=== PATIENT | female | born 1975 | race Caucasian/White ===

== ENCOUNTER 2019-09-20 09:08 | Emergency (ER) | payer OTHER ==
--- NOTE | 2019-09-20 09:26 | EDM.PDOC ---
ED HPI GENERAL MEDICAL PROBLEM - General Chief Complaint: General Stated Complaint: foot cellulitis Left Time Seen by Provider: 09/20/19 09:15 Source of Information: Reports: Patient, Old Records ([facility] chart/EMR) History Limitations: Reports: No Limitations - History of Present Illness INITIAL COMMENTS - FREE TEXT/NARRATIVE: The patient was brought to the emergency room via private automobile by her for one day history of increasing 2/10 left anterior leg pain associated with some progressive erythema. No history of recent injury, etc. with the patient having a known history of recurrent cellulitis in this leg. The patient also denies any recent cough, wheezing, dyspnea, etc., although possible fever yesterday, however she did not measure her temperature. She did take 650 mg of Tylenol at 21:00 hours this past evening. No recent history of abdominal pain, heartburn, nausea, diarrhea, melena, gross hematochezia, or any food intolerance, including fatty foods, etc.. She denies any gross hematuria, colic, or other UTI symptoms. The patient also denies any recent fever, cough, wheezing, dyspnea, etc.. Onset: Gradual Onset Date: 09/19/19 Onset Time: 12:00 Duration: Constant, Getting Worse Location: Reports: Lower Extremity, Left. Denies: Head, Face, Neck, Chest, Abdomen, Back, Pelvis, Upper Extremity, Left, Upper Extremity, Right, Lower Extremity, Right, Generalized, Radiates to Quality: Reports: Ache, Same as Previous Episode Severity: Mild Improves with: Reports: None Worsens with: Reports: None Context: Reports: Other (As above). Denies: Sick Contact, Trauma Associated Symptoms: Reports: Fever/Chills, Rash. 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 Left Lower Leg Pain Score (Numeric/FACES): 2 - Related Data Allergies Allergy/AdvReac Type Severity Reaction Status Date / Time No Known Allergies Allergy Verified 09/20/19 09:55 Home Meds: Home Meds Desoximetasone [Topicort 0.25% Crm] 1 applic TOP BID PRN 12/29/14 [History] Calcium Carbonate/Vitamin D3 [Calcium 600 + Vit D 200] 2 tab PO BEDTIME [History] levETIRAcetam [Keppra] 1,000 mg PO BID 02/12/16 [History] Ascorbic Acid [Vitamin C] 500 mg PO DAILY 12/02/18 [History] Cholecalciferol (Vitamin D3) [Vitamin D3] 1 tab PO DAILY 12/02/18 [History] Famotidine [Acid Bobbin Winder Tender] 10 mg PO BID 12/02/18 [History] Fluticasone Propionate 1 spray NASBOTH DAILY 12/02/18 [History] Amoxicillin/Potassium Clav [Augmentin 875-125 Tablet] 1 each PO BIDMEALS #14 tablet 09/20/19 [Rx] Potassium Chloride 20 meq PO DAILY 09/20/19 [History] Sertraline [Zoloft] 150 mg PO DAILY 09/20/19 [History] hydroCHLOROthiazide [Hydrochlorothiazide] 25 mg PO DAILY #1 tab 09/20/19 [Rx] Past Medical History HEENT History: Reports: Allergic Rhinitis, Impaired Vision, Other (See Below). Denies: Cataract, Glaucoma, Hard of Hearing, Macular Degeneration, Otitis Media , Retinal Detachment Other HEENT History: Seasonal allergies. The patient does wear glasses. Cardiovascular History: Reports: High Cholesterol, Hypertension, Other (See Below). Denies: Afib, Aneurysm, Arrhythmia, Blood Clots/VTE/DVT, CAD, Cardiomyopathy, Heart Failure, Heart Murmur, UT, PVD, Syncope Other Cardiovascular History: Varicose veins. Dependent edema. Respiratory History: Reports: None. Denies: Asthma, Bronchitis, Recurrent, COPD , Intubation, Difficult, Intubation, Previous, PE, Pneumonia, Recurrent, Pneumothorax, Sleep Apnea, TB Gastrointestinal History: Reports: Cholelithiasis, GERD. Denies: Bowel Obstruction, Celiac Disease, Chronic Constipation, Chronic Diarrhea, Fecal Incontinence, Gastritis, GI Bleed, Hepatitis, Hiatal Hernia, Inflammatory Bowel Disease, Irritable Bowel Syndrome, Jaundice, Pancreatitis, PUD Genitourinary History: Reports: None. Denies: Acute Renal Failure, Chronic Renal Insuffiency, Renal Calculus, Retention, Urinary, STD, Urinary Incontinence , UTI, Recurrent PRINTING PLATE MAKER History: Reports: . Denies: Dysfunctional Uterine Bleeding, Endometriosis, Fibroids, Polycystic Ovaries, Spontaneous : 4 Para: 4 LMP (Approximate): Other (See Below) Other PRINTING PLATE MAKER History: LMP one week ago, which was normal. Full term without complications during pregnancies or deliveries. Musculoskeletal History: Reports: Arthritis, Fracture, Osteoarthritis, Other ( See Below). Denies: Amputation, Back Pain, Chronic, Gout, Neck Pain, Chronic, RA, SLE Other Musculoskeletal History: Comminuted and dislocated left ankle fracture on 02/12/16 with surgey as below. Neurological History: Reports: Seizure, Other (See Below). 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 Psychiatric History: Reports: Anxiety, Depression. Denies: Abuse, Victim of, ADD, ADHD, Addiction, Psych Hospitalization(s), Psychosis, Suicide Attempt, Suicidal Ideation Endocrine/Metabolic History: Reports: Obesity/BMI 30+. Denies: Diabetes, Gestational, Diabetes, Type I, Diabetes, Type II, Diabetes Mellitus, Type 3c, Hypothyroidism, IDDM Hematologic History: Reports: None. Denies: Anemia, Blood Transfusion(s), Iron Deficiency Immunologic History: Reports: None. Denies: AIDS, HIV, SLE Oncologic (Cancer) History: Reports: None. Denies: Basal Cell Carcinoma, Breast , Cervix, Hodgkin's Lymphoma, Leukemia, Lymphoma, Malignant Melanoma, Non- Hodgkin's Lymphoma, Ovarian, Squamous Cell Carcinoma, Uterine Dermatologic History: Reports: Chronic Cellulitis, Venous Stasis Dermatitis, Other (See Below). Denies: Eczema, Psoriasis Other Dermatologic History: Venous stasis dermatitis with recurrent cellulitis of the left leg. - Infectious Disease History Infectious Disease History: Reports: None. Denies: C-Difficile, Chicken Pox, Measles, Meningitis, Mononucleosis, MRSA, Mumps, Pertussis (Whooping Cough), Rubella, Scarlet Fever, Shingles, TB, VRE - Past Surgical History Head Surgeries/Procedures: Reports: Craniotomy, Other (See Below) Other Head Surgeries/Procedures: AVM repair? vs. an unknown type of surgery to correct seizures in 2005. HEENT Surgical History: Reports: Oral Surgery, Other (See Below). Denies: Adenoidectomy, Cataract Surgery, Eye Surgery, Laser Surgery, LASIK, Myringotomy w Tube(s), Naso-Sinus Surgery, Tonsillectomy Other HEENT Surgeries/Procedures: [place] teeth extraction 3 at about age 24. Cardiovascular Surgical History: Reports: None. Denies: Varicose Respiratory Surgical History: Reports: None, Lung Biopsies. Denies: Thoracentesis GI Surgical History: Reports: Cholecystectomy. Denies: Appendectomy, Colonoscopy, EGD, Hernia, Abdominal, Hernia, Inguinal, Hernia Repair/Other Female Surgical History: Reports: Tubal Ligation, Other (See Below). Denies : Breast Biopsy, Section, D&C, Hysterectomy, Oophorectomy, Salpingo- Oophorectomy Other Female Surgeries/Procedures: Bilateral tubal ligation in 2009. Endocrine Surgical History: Reports: None. Denies: Thyroid Biopsy Neurological Surgical History: Reports: None. Denies: C-Spine, Discectomy, Laminectomy, Lumbar Spine, Sacral Spine, Scoliosis, Spinal Fusion, Vertebroplasty Musculoskeletal Surgical History: Reports: ORIF, Other (See Below). Denies: Arthroscopic Procedure, Carpal Tunnel, Ganglion Cyst, Joint Replacement, Shoulder Replacement, Shoulder Surgery Other Musculoskeletal Surgeries/Procedures:: ORIF of left ankle fracture on 02/11. Oncologic Surgical History: Reports: None Dermatological Surgical History: Reports: None - Past Imaging History Past Imaging History: Reports: Mammogram (Last on 10/15/18) Social & Family History - Tobacco Use Smoking Status *Q: Never Smoker Tobacco Use Within Last Twelve Months: No Used Tobacco, but Quit: No Smoking Cessation Information Provided To Patient: No Second Hand Smoke Exposure: No Second Hand Smoke Education Provided: No - Caffeine Use Caffeine Use: Reports: Coffee (2 cups per day), Soda (1 soda per week), Tea ( One cup per day). Denies: Energy Drinks - Alcohol Use Alcohol Use History: Yes Days Per Week of Alcohol Use: 0 Number of Drinks Per Day: 1 Number of Drinks Per Day Comment: Usually kindra in mixed drinks for holidays, etc.. No previous DWIs, problems with alcohol abuse, etc. 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 ED ROS GENERAL - Review of Systems Review Of Systems: Comprehensive ROS is negative, except as noted in HPI. ED EXAM, GENERAL - Physical Exam Exam: See Below Exam Limited By: No Limitations General Appearance: Alert, WD/WN, No Apparent Distress Head: Atraumatic, Normocephalic Neck: Normal Inspection, Supple, Non-Tender, Full Range of Motion. No: Lymphadenopathy (L), Lymphadenopathy (R), Thyromegaly Respiratory/Chest: No Respiratory Distress, Lungs Clear, Normal Breath Sounds, No Accessory Muscle Use, Chest Non-Tender. No: Pleural Rub, Retractions Cardiovascular: Normal Peripheral Pulses, No Edema, No Gallop, No JVD, No Murmur , No Rub, Tachycardia (Regular rhythm). No: Gallop/S3, Gallop/S4, Friction Rub Peripheral Pulses: 2+: Radial (L), Radial (R), Dorsalis Pedis (L), Dorsalis Pedis (R) GI/Abdominal: Normal Bowel Sounds, Soft, Non-Tender, No Organomegaly, No Distention, No Abnormal Bruit, No Mass, Pelvis Stable, Other ( obese). No: Guarding (Female) Exam: Deferred Rectal (Female) Exam: Deferred Back Exam: Normal Inspection, Full Range of Motion. No: CVA Tenderness (L), CVA Tenderness (R), Muscle Spasm Extremities: Pedal Edema (+1 left leg by mouth/pretibial edema), Redness (+2 irregular patch of erythema extending over the dorsal surfaces from the toes to mid anterior tibial region with maximum diameter of 30 cm. No ulcerations, lymphangitis, drainage, etc. etc. Moderate to severe varicosity of the left leg) . No: Anat's Sign Neurological: Alert, Oriented, CN II-XII Intact, Normal Cognition, Normal Gait, Normal Reflexes (Negative Babinski's), No Motor/Sensory Deficits Psychiatric: Normal Affect, Normal Mood Skin Exam: Dry, Intact, Erythema (As above). No: Diaphoretic, Ecchymosis, Increased Warmth, Lymphangitis, Petechiae, Wound/Incision Lymphatic: No Adenopathy Course - Vital Signs Last Recorded V/S: Last Vital Signs Temp 36.4 C 09/20/19 09:20 Pulse 100 09/20/19 10:20 Resp 30 H 09/20/19 10:20 BP 120/74 09/20/19 10:20 Pulse Ox 96 09/20/19 10:20 Vital Signs - 24 hr 09/20/19 09/20/19 09/20/19 09:20 09:35 09:50 Temperature [ 36.4 C Temporal] Pulse, 109 H 108 H 105 H Peripheral [ Pulse Oximetry] Respiratory 22 H 27 H 28 H Rate Blood Pressure 123/81 125/75 125/75 [Left Upper Arm ] O2 Sat by Pulse 97 96 96 Oximetry 09/20/19 09/20/19 10:05 10:20 Temperature [ Temporal] Pulse, 101 H 100 Peripheral [ Pulse Oximetry] Respiratory 29 H 30 H Rate Blood Pressure 118/74 120/74 [Left Upper Arm ] O2 Sat by Pulse 95 96 Oximetry - Orders/Labs/Meds Orders: Active Orders 24 hr Category Date Time Status Cardiac Monitoring [RC] . DIRECTED Care 09/20/19 09:27 Active Peripheral IV Care [RC] . DIRECTED Care 09/20/19 09:27 Active Sodium Chloride 0.9% [Saline Flush] Med 09/20/19 09:26 Active 10 ml FLUSH ASDIRECTED PRN Obtain Past Medical Record [OM.PC] Routine Oth 09/20/19 09:26 Active Peripheral IV Insertion Adult [OM.PC] Routine Oth 09/20/19 09:27 Ordered Medication Orders Sodium Chloride (Saline Flush) 10 ml FLUSH ASDIRECTED PRN PRN Reason: Keep Vein Open Last Admin: 09/20/19 10:38 Dose: 10 ml Admin: 09/20/19 09:58 Dose: 10 ml Labs: Laboratory Tests 09/20/19 09/20/19 09/20/19 Range/Units 09:50 09:50 09:50 WBC 12.6 H (4.0-10.2) K/uL RBC 4.41 (3.77-5.09) M/uL Hgb 13.1 D (11.7-15.5) g/dL Hct 38.2 (34.0-46.0) % MCV 86.6 D (84.0-98.0) fL MCH 29.7 (28.2-33.3) pg MCHC 34.3 (31.7-36.0) g/dL RDW 13.8 (11.2-14.1) % Plt Count 205 (150-350) K/uL Neut % (Auto) 93.0 H (45.0-80.0) % Lymph % (Auto) 4.8 L (10.0-50.0) % Traverse % (Auto) 2.1 (2.0-14.0) % Eos % (Auto) 0.0 (0.0-5.0) % Baso % (Auto) 0.1 (0.0-2.0) % Neut # (Auto) 11.76 H (1.40-7.00) K/uL Lymph # (Auto) 0.61 (0.50-3.50) K/uL Traverse # (Auto) 0.26 (0.00-1.00) K/uL Eos # (Auto) 0.00 (0.00-0.50) K/uL Baso # (Auto) 0.01 (0.00-0.20) K/uL D-Dimer, Quantitative (0-400) ng/mL Sodium 135 L (136-145) mmol/L Potassium 2.8 L* (3.5-5.1) mmol/L Chloride 98 (98-107) mmol/L Carbon Dioxide 23.5 (21.0-32.0) mmol/L BUN 13 (7-18) mg/dL Creatinine 0.79 (0.51-1.17) mg/dL Est Cr Clr Drug Dosing TNP Estimated GFR (MDRD) > 60 mL/min Glucose 159 H (74-106) mg/dL Hemoglobin A1c 5.4 (4.3-5.7) % Lactic Acid (0.4-2.0) mmol/L Uric Acid (2.6-7.2) mg/dL Calcium 8.5 (8.5-10.1) mg/dL Magnesium 1.9 (1.8-2.4) mg/dL Total Bilirubin 0.6 (0.2-1.0) mg/dL AST 22 (15-37) U/L ALT 28 (12-78) U/L Alkaline Phosphatase 65 (46-116) IU/L Total Protein 7.4 (6.4-8.2) g/dL Albumin 3.6 (3.4-5.0) g/dL 09/20/19 09/20/19 09/20/19 Range/Units 09:50 09:50 09:50 WBC (4.0-10.2) K/uL RBC (3.77-5.09) M/uL Hgb (11.7-15.5) g/dL Hct (34.0-46.0) % MCV (84.0-98.0) fL MCH (28.2-33.3) pg MCHC (31.7-36.0) g/dL RDW (11.2-14.1) % Plt Count (150-350) K/uL Neut % (Auto) (45.0-80.0) % Lymph % (Auto) (10.0-50.0) % Traverse % (Auto) (2.0-14.0) % Eos % (Auto) (0.0-5.0) % Baso % (Auto) (0.0-2.0) % Neut # (Auto) (1.40-7.00) K/uL Lymph # (Auto) (0.50-3.50) K/uL Traverse # (Auto) (0.00-1.00) K/uL Eos # (Auto) (0.00-0.50) K/uL Baso # (Auto) (0.00-0.20) K/uL D-Dimer, Quantitative 233 (0-400) ng/mL Sodium (136-145) mmol/L Potassium (3.5-5.1) mmol/L Chloride (98-107) mmol/L Carbon Dioxide (21.0-32.0) mmol/L BUN (7-18) mg/dL Creatinine (0.51-1.17) mg/dL Est Cr Clr Drug Dosing Estimated GFR (MDRD) mL/min Glucose (74-106) mg/dL Hemoglobin A1c (4.3-5.7) % Lactic Acid 1.9 (0.4-2.0) mmol/L Uric Acid 4.7 (2.6-7.2) mg/dL Calcium (8.5-10.1) mg/dL Magnesium (1.8-2.4) mg/dL Total Bilirubin (0.2-1.0) mg/dL AST (15-37) U/L ALT (12-78) U/L Alkaline Phosphatase (46-116) IU/L Total Protein (6.4-8.2) g/dL Albumin (3.4-5.0) g/dL Meds: Medications Generic Name Dose Route Start Last Admin Trade Name Freq PRN Reason Stop Dose Admin Sodium Chloride 10 ml 09/20/19 09:26 09/20/19 10:38 Saline Flush FLUSH 10 ml ASDIRECTED PRN Administration Keep Vein Open Discontinued Medications Generic Name Dose Route Start Last Admin Trade Name Freq PRN Reason Stop Dose Admin Ceftriaxone Sodium 1 gm/ 100 mls @ 200 mls/hr 09/20/19 09:42 09/20/19 09:57 Sodium Chloride IV 09/20/19 10:11 200 mls/hr ONETIME ONE Administration Potassium Chloride 40 meq 09/20/19 10:29 09/20/19 10:36 Klor-Con M20 PO 09/20/19 10:30 40 meq ONETIME ONE Administration - Radiology Interpretation Free Text/Narrative:: quality assurance monitor shows mild sinus tachycardia with initial heart rate in the 100s to 110s with final heart rate in the low 100s prior to discharge. Departure - Departure Time of Disposition: 11:25 Disposition: Home, Self-Care 01 Condition: Good Clinical Impression: Grand mal seizure disorder, Mixed anxiety depressive disorder, Obesity (BMI 35.0-39.9 without comorbidity), Hypokalemia GERD (gastroesophageal reflux disease) Qualifiers: Esophagitis presence: esophagitis presence not specified Qualified Code(s): K21.9 - Gastro-esophageal reflux disease without esophagitis Cellulitis Qualifiers: Site of cellulitis: extremity Site of cellulitis of extremity: lower extremity Laterality: left Qualified Code(s): L03.116 - Cellulitis of left lower limb Osteoarthritis Qualifiers: Osteoarthritis location: multiple joints Osteoarthritis type: primary Qualified Code(s): M89.49 - Other hypertrophic osteoarthropathy, multiple sites Hypertension Qualifiers: Hypertension type: essential hypertension Qualified Code(s): I10 - Essential ( primary) hypertension Allergic rhinitis Qualifiers: Allergic rhinitis trigger: pollen Allergic rhinitis seasonality: seasonal Qualified Code(s): J30.1 - Allergic rhinitis due to pollen - Discharge Information *PRESCRIPTION DRUG MONITORING PROGRAM REVIEWED*: Not Applicable *COPY OF PRESCRIPTION DRUG MONITORING REPORT IN PATIENT [place]: Not Applicable Prescriptions: Amoxicillin/Potassium Clav [Augmentin 875-125 Tablet] 1 each PO BIDMEALS #14 tablet hydroCHLOROthiazide [Hydrochlorothiazide] 25 mg PO DAILY #1 tab Instructions: Amoxicillin; Clavulanic Acid tablets, Ceftriaxone injection, Cellulitis, Adult, [id number] Referrals: PCP,Unknown [Ordering Only Provider] - Forms: ED Department Discharge Additional Instructions: 1. Followup with your regular provider in 5-7 days as directed for reevaluation and recommended repeat CBC and basic metabolic panel. Bring these discharge instructions with you to that visit. 2. Tylenol 650 mg by mouth every 4 hours and/or OTC ibuprofen 2-3 tabs by mouth every 6 hours with food as directed./needed. You may stagger these medications for 48-72 hours only, which essentially means that you are receiving a pain medication about every 2 hours. 3. Diarrhea precautions with Augmentin therapy with initiation of medication this afternoon. Take all 10 days of this medication, i.e., emergency room prescription and additional prescription called to your pharmacy. 4. Take an additional dose of potassium chloride with supper today otherwise continue your hydrochlorothiazide and potassium chloride medications on a daily regular rather than as-needed basis in the future 5. Continue support hose as before. 6. Antibacterial soap wash/soak with subsequent antibacterial dressing such as Neosporin, etc. as directed 2 times per day until the wound site completely heals. Keep the area clean and dry with activity restrictions as discussed. Never use hydrogen peroxide for wound care. Do not use steroid cream on your leg rash 7. Immediately after this visit verify that your cellular telephone's voicemail has been activated and is empty. Also verify that your home telephone 's answering machine is operating properly and has space to receive messages. Note that it is sometimes necessary for us to be able to contact you at a later date to discuss your medical care. 8. Please remember that we are ALWAYS here for you and want to answer any questions you may have. Feel free to call the hospital any time and we call you back YARIEL. Sepsis Event Note - Focused Exam Vital Signs: Vital Signs Temp Pulse Resp BP Pulse Ox 09/20/19 10:20 100 30 H 120/74 96 04/26/20 10:05 101 H 29 H 118/74 95 09/20/19 09:50 105 H 28 H 125/75 96 09/20/19 09:35 108 H 27 H 125/75 96 09/20/19 09:20 36.4 C 109 H 22 H 123/81 97 Date Exam was Performed: 09/20/19 Time Exam was Performed: 11:26 - Problem List & Annotations (1) Cellulitis SNOMED Code(s): 792443225 Code(s): L03.90 - CELLULITIS, UNSPECIFIED Status: Acute Priority: High Onset Date: ~09/18/19 Annotation/Comment:: History of recurrent cellulitis of the left leg. IV Rocephin given in the emergency room. Continue outpatient Augmentin therapy with close follow-up by regular provider as per discharge instructions. Qualifiers: Site of cellulitis: extremity Site of cellulitis of extremity: lower extremity Laterality: left Qualified Code(s): L03.116 - Cellulitis of left lower limb (2) Hypokalemia SNOMED Code(s): 89794891 Code(s): E87.6 - HYPOKALEMIA Status: Acute Priority: High Onset Date: 09/20/19 Annotation/Comment:: Moderate hypokalemia secondary to medication noncompliance with her potassium supplementation. High-dose potassium chloride given in the emergency room. Patient has been using her hydrochlorothiazide on a daily basis for about the last week secondary to increasing dependent edema. No chest pain or anginal type symptoms. Her hydrochlorothiazide and potassium supplementation will be changed to a permanent rather than when necessary basis. Close follow-up by her regular provider as per discharge instructions. Medication compliance strongly encouraged. (3) Grand mal seizure disorder SNOMED Code(s): 554485317 Code(s): G40.409 - OTH GENERALIZED EPILEPSY, NOT INTRACTABLE, W/O STAT EPI Status: Chronic Priority: Medium Annotation/Comment:: Stable by history with last seizure more than 10 years ago. Possible history of previous AVM with skull surgery as above. (4) Osteoarthritis SNOMED Code(s): 040623067 Code(s): M19.90 - UNSPECIFIED OSTEOARTHRITIS, UNSPECIFIED SITE Status: Chronic Priority: Medium Annotation/Comment:: Stable by history Qualifiers: Osteoarthritis location: multiple joints Osteoarthritis type: primary Qualified Code(s): M89.49 - Other hypertrophic osteoarthropathy, multiple sites (5) Mixed anxiety depressive disorder SNOMED Code(s): 333822043 Code(s): F41.8 - OTHER SPECIFIED ANXIETY DISORDERS Status: Chronic Priority: Medium Annotation/Comment:: Stable by history (6) Obesity (BMI 35.0-39.9 without comorbidity) SNOMED Code(s): 627779222, 614483541 Code(s): E66.9 - OBESITY, UNSPECIFIED Status: Chronic Priority: Medium Annotation/Comment:: Weight loss in moderation is advisable. Patient would also benefit from a lipid profile possible statin therapy. Elevated random blood glucose, however normal glycosylated hemoglobin today. (7) GERD (gastroesophageal reflux disease) SNOMED Code(s): 279169418 Code(s): K21.9 - GASTRO-ESOPHAGEAL REFLUX DISEASE WITHOUT ESOPHAGITIS Status: Chronic Priority: Medium Annotation/Comment:: Stable per patient Qualifiers: Esophagitis presence: esophagitis presence not specified Qualified Code(s) : K21.9 - Gastro-esophageal reflux disease without esophagitis (8) Hypertension SNOMED Code(s): 78926597 Code(s): I10 - ESSENTIAL (PRIMARY) HYPERTENSION Status: Chronic Priority : Medium Annotation/Comment:: Blood pressure stable in the emergency room. Qualifiers: Hypertension type: essential hypertension Qualified Code(s): I10 - Essential (primary) hypertension (9) Allergic rhinitis SNOMED Code(s): 61681735 Code(s): J30.9 - ALLERGIC RHINITIS, UNSPECIFIED Status: Chronic Priority : Medium Annotation/Comment:: Stable by history Qualifiers: Allergic rhinitis trigger: pollen Allergic rhinitis seasonality: seasonal Qualified Code(s): J30.1 - Allergic rhinitis due to pollen - Problem List Review Problem List Initiated/Reviewed/Updated: Yes - My Orders Last 24 Hours: My Active Orders 09/20/19 09:26 Sodium Chloride 0.9% [Saline Flush] 10 ml FLUSH ASDIRECTED PRN Obtain Past Medical Record [OM.PC] Routine 09/20/19 09:27 Cardiac Monitoring [RC] . DIRECTED Peripheral IV Care [RC] . DIRECTED Peripheral IV Insertion Adult [OM.PC] Routine - Assessment/Plan Last 24 Hours: My Active Orders 09/20/19 09:26 Sodium Chloride 0.9% [Saline Flush] 10 ml FLUSH ASDIRECTED PRN Obtain Past Medical Record [OM.PC] Routine 09/20/19 09:27 Cardiac Monitoring [RC] . DIRECTED Peripheral IV Care [RC] . DIRECTED Peripheral IV Insertion Adult [OM.PC] Routine Assessment:: As above Plan: As above. Extensive precautions were given to the patient, who is in agreement with the treatment plan. See Patient Instructions for further treatment and plan.
[2019-09-20] MEDS ORDERED: cefTRIAXone 1 GM in Sodium Chloride 0.9% 100 ML IV ONE (09:42)
[2019-09-20] MEDS: Sodium Chloride 0.9% 10 ML Syringe FLUSH PRN ×2 (09:58→10:38)
[2019-09-20 10:20] LABS: CHLORIDE,CL 98 mmol/L (98-107)
[2019-09-20 10:25] LABS: HEMOGLOBIN A1C 5.4 % (4.3-5.7)
[2019-09-20 10:28] LABS: SODIUM,NA 135 mmol/L (136-145)
[2019-09-20] MEDS ORDERED: Potassium Chloride 20 MEQ Tab.ER PO ONE (10:29)
[2019-09-20 10:35] VITALS: BP 120/74; PULSE 100
== END 2019-09-20 11:25 | disposition home or self-care (01) ==
LOC: LL.ED 09:08 → SUPCPDRO 09:08 → LL.ED 11:25
DX: L03.116 Cellulitis of left lower limb (principal); G40.409 Other generalized epilepsy and epileptic syndromes, not intractable, without status epilepticus; E87.6 Hypokalemia; M89.49 Other hypertrophic osteoarthropathy, multiple sites; J30.1 Allergic rhinitis due to pollen; F41.8 Other specified anxiety disorders; I10 Essential (primary) hypertension; K21.9 Gastro-esophageal reflux disease without esophagitis; E78.00 Pure hypercholesterolemia, unspecified; E66.9 Obesity, unspecified; Z79.899 Other long term (current) drug therapy
CPT/HCPCS: 36415; 80053; 83036; 83605; 83735; 84550; 85025; 85379; 96365; 99283-25; A9270-GY; J0696; J7050

== ENCOUNTER 2021-02-23 17:05 | Emergency (ER) | payer BC, OTHER ==
[2021-02-23] MEDS ORDERED: cefTRIAXone 1 GM Vial IM ONE (17:17)
[2021-02-23 17:54] VITALS: BP 112/80; PULSE 94
--- NOTE | 2021-02-23 17:54 | EDM.PDOC ---
ED HPI GENERAL MEDICAL PROBLEM - General Chief Complaint: Skin Complaint Stated Complaint: Cellulitis Time Seen by Provider: 02/23/21 17:15 Source of Information: Reports: Patient History Limitations: Reports: No Limitations - History of Present Illness INITIAL COMMENTS - FREE TEXT/NARRATIVE: Pt. states that she started developing redness and swelling to L foot and ankle yesterday. Pt. states that she has a history of cellulitis in the extremity in the past (2019) that was treated with 1 dose of IV rocephin and a course of oral augmentin. Pt. states that she has felt a bit chilled but denies any weakness. She denies any tenderness on palpation of the foot or ankle. Pt. denies any nausea or vomiting. Denies any increased discomfort on ambulation or movement of the foot/ankle. Onset Date: 02/22/21 - Related Data Allergies Allergy/AdvReac Type Severity Reaction Status Date / Time No Known Allergies Allergy Verified 09/20/19 09:55 Home Meds: Home Meds Desoximetasone [Topicort 0.25% Crm] 1 applic TOP BID PRN 12/29/14 [History] Calcium Carbonate/Vitamin D3 [Calcium 600 + Vit D 200] 2 tab PO BEDTIME 02/12/16 [History] levETIRAcetam [Keppra] 1,000 mg PO BID 02/12/16 [History] Ascorbic Acid [Vitamin C] 500 mg PO DAILY 12/02/18 [History] Cholecalciferol (Vitamin D3) [Vitamin D3] 1 tab PO DAILY 12/02/18 [History] Famotidine [Acid Bullet Assembly Press Setter Operator] 10 mg PO BID 12/02/18 [History] Fluticasone Propionate 1 spray NASBOTH DAILY 12/02/18 [History] Amoxicillin/Potassium Clav [Augmentin 875-125 Tablet] 1 each PO BIDMEALS #14 tablet 09/20/19 [Rx] Potassium Chloride 20 meq PO DAILY 09/20/19 [History] Sertraline [Zoloft] 150 mg PO DAILY 09/20/19 [History] hydroCHLOROthiazide [Hydrochlorothiazide] 25 mg PO DAILY #1 tab 09/20/19 [Rx] Past Medical History HEENT History: Reports: Allergic Rhinitis, Impaired Vision, Other (See Below). Denies: Cataract, Glaucoma, Hard of Hearing, Macular Degeneration, Otitis Media, Retinal Detachment Other HEENT History: Seasonal allergies. The patient does wear glasses. Cardiovascular History: Reports: High Cholesterol, Hypertension, Other (See Below). Denies: Afib, Aneurysm, Arrhythmia, Blood Clots/VTE/DVT, CAD, Cardiomyopathy, Heart Failure, Heart Murmur, CA, PVD, Syncope Other Cardiovascular History: Varicose veins. Dependent edema. Respiratory History: Reports: None. Denies: Asthma, Bronchitis, Recurrent, COPD, Intubation, Difficult, Intubation, Previous, PE, Pneumonia, Recurrent, Pneumothorax, Sleep Apnea, TB Gastrointestinal History: Reports: Cholelithiasis, GERD. Denies: Bowel Obstruction, Celiac Disease, Chronic Constipation, Chronic Diarrhea, Fecal Incontinence, Gastritis, GI Bleed, Hepatitis, Hiatal Hernia, Inflammatory Bowel Disease, Irritable Bowel Syndrome, Jaundice, Pancreatitis, PUD Genitourinary History: Reports: None. Denies: Acute Renal Failure, Chronic Renal Insuffiency, Renal Calculus, Retention, Urinary, STD, Urinary Incontinence, UTI, Recurrent PHYSICAL SECURITY SPECIALIST History: Reports: . Denies: Dysfunctional Uterine Bleeding, Endometriosis, Fibroids, Polycystic Ovaries, Spontaneous Other PHYSICAL SECURITY SPECIALIST History: LMP one week ago, which was normal. Full term without complications during pregnancies or deliveries. Musculoskeletal History: Reports: Arthritis, Fracture, Osteoarthritis, Other (See Below). Denies: Amputation, Back Pain, Chronic, Gout, Neck Pain, Chronic, RA, SLE Other Musculoskeletal History: Comminuted and dislocated left ankle fracture on 02/12/16 with surgey as below. Neurological History: Reports: Seizure, Other (See Below). 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 Psychiatric History: Reports: Anxiety, Depression. Denies: Abuse, Victim of, ADD, ADHD, Addiction, Psych Hospitalization(s), Psychosis, Suicide Attempt, Suicidal Ideation Endocrine/Metabolic History: Reports: Obesity/BMI 30+. Denies: Diabetes, Gestational, Diabetes, Type I, Diabetes, Type II, Diabetes Mellitus, Type 3c, Hypothyroidism, IDDM Hematologic History: Reports: None. Denies: Anemia, Blood Transfusion(s), Iron Deficiency Immunologic History: Reports: None. Denies: AIDS, HIV, SLE Oncologic (Cancer) History: Reports: None. Denies: Basal Cell Carcinoma, Breast, Cervix, Hodgkin's Lymphoma, Leukemia, Lymphoma, Malignant Melanoma, Non- Hodgkin's Lymphoma, Ovarian, Squamous Cell Carcinoma, Uterine Dermatologic History: Reports: Chronic Cellulitis, Venous Stasis Dermatitis, Other (See Below). Denies: Eczema, Psoriasis Other Dermatologic History: Venous stasis dermatitis with recurrent cellulitis of the left leg. - Infectious Disease History Infectious Disease History: Reports: None. Denies: C-Difficile, Chicken Pox, Measles, Meningitis, Mononucleosis, MRSA, Mumps, Pertussis (Whooping Cough), Rubella, Scarlet Fever, Shingles, TB, VRE - Past Surgical History Head Surgeries/Procedures: Reports: Craniotomy, Other (See Below) HEENT Surgical History: Reports: Oral Surgery, Other (See Below). Denies: Adenoidectomy, Cataract Surgery, Eye Surgery, Laser Surgery, LASIK, Myringotomy w Tube(s), Naso-Sinus Surgery, Tonsillectomy Other HEENT Surgeries/Procedures: [place] teeth extraction 3 at about age 24. Cardiovascular Surgical History: Reports: None. Denies: Varicose Respiratory Surgical History: Reports: None, Lung Biopsies. Denies: Thoracentesis GI Surgical History: Reports: Cholecystectomy. Denies: Appendectomy, Colonoscopy, EGD, Hernia, Abdominal, Hernia, Inguinal, Hernia Repair/Other Female Surgical History: Reports: Tubal Ligation, Other (See Below). Denies: Breast Biopsy, Section, D&C, Hysterectomy, Oophorectomy, Salpingo- Oophorectomy Other Female Surgeries/Procedures: Bilateral tubal ligation in 2008. Endocrine Surgical History: Reports: None. Denies: Thyroid Biopsy Neurological Surgical History: Reports: None. Denies: C-Spine, Discectomy, Laminectomy, Lumbar Spine, Sacral Spine, Scoliosis, Spinal Fusion, Vertebroplasty Musculoskeletal Surgical History: Reports: ORIF, Other (See Below). Denies: Arthroscopic Procedure, Carpal Tunnel, Ganglion Cyst, Joint Replacement, Shoulder Replacement, Shoulder Surgery Other Musculoskeletal Surgeries/Procedures:: ORIF of left ankle fracture on 02/12/16. Oncologic Surgical History: Reports: None Dermatological Surgical History: Reports: None - Past Imaging History Past Imaging History: Reports: Mammogram (Last on 10/15/18) Social & Family History - Caffeine Use Caffeine Use: Reports: Coffee (2 cups per day), Soda (1 soda per week), Tea (One cup per day). 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 ED ROS GENERAL - Review of Systems Review Of Systems: Comprehensive ROS is negative, except as noted in HPI. ED EXAM, SKIN/RASH Exam: See Below Exam Limited By: No Limitations General Appearance: Alert, WD/WN, No Apparent Distress Extremities: Normal Range of Motion, Normal Capillary Refill, Pedal Edema, Increased Warmth, Redness Lymphatic: No Adenopathy Course - Vital Signs Last Recorded V/S: Last Vital Signs Temp 37.2 C 02/23/21 17:10 Pulse 94 02/23/21 17:10 Resp 16 02/23/21 17:10 BP 112/80 02/23/21 17:10 Pulse Ox 97 02/23/21 17:10 - Orders/Labs/Meds Meds: Medications Discontinued Medications Generic Name Dose Route Start Last Admin Trade Name Freq PRN Reason Stop Dose Admin Ceftriaxone Sodium 1 gm 02/23/21 17:17 02/23/21 17:40 Ceftriaxone 1 Gm Vial IM 02/23/21 17:18 1 gm ONETIME ONE Administration Lidocaine HCl Confirm 02/23/21 17:24 02/23/21 17:40 Lidocaine 1% 5 Ml Sdv Administered 02/23/21 17:25 5 ml Dose Administration 5 ml .ROUTE .STK-MED ONE Departure - Departure Time of Disposition: 17:45 Disposition: Home, Self-Care 01 Clinical Impression: Cellulitis Qualifiers: Site of cellulitis: extremity Site of cellulitis of extremity: lower extremity Laterality: left Qualified Code(s): L03.116 - Cellulitis of left lower limb - Discharge Information Instructions: Amoxicillin; Clavulanic Acid Tablets, Cellulitis, Adult, Probiotics Referrals: PCP,None [Primary Care Provider] - Forms: ED Department Discharge Additional Instructions: Home to rest. Tylenol and ibuprofen as needed for discomfort. Augmentin 875mg 1 tab twice daily for 10 days. Recheck in clinic in 10-14 days, sooner if not gradually improving. Sepsis Event Note (ED) - Focused Exam Vital Signs: Vital Signs Temp Pulse Resp BP Pulse Ox 02/23/21 17:10 37.2 C 94 16 112/80 97 - Problem List Review Problem List Initiated/Reviewed/Updated: Yes - Assessment/Plan Plan: Home to rest. Tylenol and ibuprofen as needed for discomfort. Augmentin 875mg 1 tab twice daily for 10 days. Recheck in clinic in 10-14 days, sooner if not gradually improving.
== END 2021-02-23 17:55 | disposition home or self-care (01) ==
LOC: LL.ED 17:05
DX: L03.116 Cellulitis of left lower limb (principal); E78.00 Pure hypercholesterolemia, unspecified; I10 Essential (primary) hypertension; Z79.899 Other long term (current) drug therapy
CPT/HCPCS: 96372; 99283; J0696

== ENCOUNTER 2022-07-18 08:34 | Emergency (ER) | payer BC ==
[2022-07-18 08:41] VITALS: BP 187/93; PULSE 119
[2022-07-18] MEDS: Acetaminophen/HYDROcodone 325-5 MG Tab PO ONE (08:50)
[2022-07-18] MEDS: cefTRIAXone 1 GM, Lidocaine 1% 1.2 ML IM ONE ×2 (08:50)
[2022-07-18 09:15] LABS: ANION GAP 12.6 meq/L (7-15)
== END 2022-07-18 09:50 | disposition home or self-care (01) ==
LOC: LL.ED 08:34
DX: L03.116 Cellulitis of left lower limb (principal); E66.01 Morbid (severe) obesity due to excess calories; I10 Essential (primary) hypertension; K21.9 Gastro-esophageal reflux disease without esophagitis; R56.9 Unspecified convulsions; Z68.41 Body mass index [BMI] 40.0-44.9, adult; Z79.899 Other long term (current) drug therapy
CPT/HCPCS: 36415; 80053; 83605; 85025; 99283; 99284; A9270; J0696; J3490

== ENCOUNTER 2022-07-19 16:45 | Observation (INO) | payer BC ==
[2022-07-19] MEDS ORDERED: Sodium Chloride 0.9% 1,000 ML IV ONE (17:26)
[2022-07-19 17:29] LABS: CHLORIDE,CL 99 mmol/L (98-107); SODIUM,NA 136 mmol/L (136-145)
[2022-07-19 17:31] LABS: ANION GAP 13.9 meq/L (7-15); ESTIMATED GFR 78 mL/min (>=60)
[2022-07-19] MEDS: Sodium Chloride 0.9% 10 ML Syringe FLUSH PRN ×3 (18:51→20:28)
[2022-07-19] MEDS ORDERED: LORazepam 2 MG/ML SDV IVPUSH PRN (19:13)
[2022-07-19] MEDS ORDERED: HYDROmorphone 0.5 MG/0.5 ML Syringe IVPUSH PRN (19:14)
[2022-07-19] MEDS ORDERED: Ondansetron 4 MG/2 ML SDV IVPUSH PRN (19:15)
[2022-07-19] MEDS ORDERED: S NASBOTH PRN (19:40)
[2022-07-19] MEDS: D5 1/2 NS w/ 20 mEq/L KCl 1,000 ML IV SCH (19:54)
[2022-07-19] MEDS: levETIRAcetam 500 MG Tab PO SCH (21:49)
[2022-07-20] MEDS ORDERED: levETIRAcetam 500 MG Tab PO SCH (08:00)
[2022-07-20] MEDS: Famotidine 20 MG Tab PO SCH (08:10)
[2022-07-20] MEDS: D5 1/2 NS w/ 20 mEq/L KCl 1,000 ML IV SCH (08:10)
[2022-07-20] MEDS: Sertraline 50 MG Tab PO SCH (08:11)
[2022-07-20] MEDS: Potassium Chloride 20 MEQ Tab.ER PO SCH (08:11)
[2022-07-20] MEDS: Hydrochlorothiazide 25 MG Tab PO SCH (08:11)
[2022-07-20] MEDS: levETIRAcetam 500 MG Tab PO SCH ×2 (08:11→17:19)
[2022-07-20 08:42] LABS: ANION GAP 13.4 meq/L (7-15)
[2022-07-20] MEDS ORDERED: D5 1/2 NS w/ 40 mEq/L KCl 1,000 ML IV ONE (09:00)
[2022-07-20] MEDS: Acetaminophen 500 MG Tab PO PRN ×2 (09:36→17:21)
[2022-07-21 08:39] LABS: ANION GAP 12.1 meq/L (7-15)
[2022-07-21] MEDS: Sodium Chloride 0.9% 10 ML Syringe FLUSH PRN ×2 (09:02→17:15)
[2022-07-21] MEDS: Potassium Chloride 20 MEQ Tab.ER PO SCH (09:06)
[2022-07-21] MEDS: Sertraline 50 MG Tab PO SCH (09:06)
[2022-07-21] MEDS: Famotidine 20 MG Tab PO SCH (09:07)
[2022-07-21] MEDS: Hydrochlorothiazide 25 MG Tab PO SCH (09:08)
[2022-07-21] MEDS: levETIRAcetam 500 MG Tab PO SCH ×2 (09:08→17:15)
[2022-07-22] MEDS: Hydrochlorothiazide 25 MG Tab PO SCH (08:15)
[2022-07-22] MEDS: Potassium Chloride 20 MEQ Tab.ER PO SCH (08:16)
[2022-07-22] MEDS: levETIRAcetam 500 MG Tab PO SCH (08:16)
[2022-07-22] MEDS: Sertraline 50 MG Tab PO SCH (08:16)
[2022-07-22] MEDS: Famotidine 20 MG Tab PO SCH (08:17)
[2022-07-22 08:37] LABS: ANION GAP 15.2 meq/L (7-15)
[2022-07-22] MEDS: Sodium Chloride 0.9% 10 ML Syringe FLUSH PRN (08:51)
[2022-07-22 10:29] VITALS: BP 123/64; PULSE 80
== END 2022-07-22 17:35 | disposition home or self-care (01) ==
LOC: LL.ED 16:45 → LL.MS 19:00
PROVIDERS: ADMIT Emergency Medicine; ATTEND Emergency Medicine
DX: L03.116 Cellulitis of left lower limb (principal); E87.6 Hypokalemia; E78.00 Pure hypercholesterolemia, unspecified; M19.90 Unspecified osteoarthritis, unspecified site; I10 Essential (primary) hypertension; M10.9 Gout, unspecified; K21.9 Gastro-esophageal reflux disease without esophagitis; F41.8 Other specified anxiety disorders; G40.909 Epilepsy, unspecified, not intractable, without status epilepticus; E66.01 Morbid (severe) obesity due to excess calories; Z79.899 Other long term (current) drug therapy
CPT/HCPCS: 36415; 80053; 83605; 85025; 96365; 96366; 96367; 96375; 96376; 99223; 99232; 99233; 99239; 99284-25; A9270-GY; G0378; J0690; J1170; J3480; J3490